=== PATIENT | male | born 1990 | race Caucasian/White ===

== ENCOUNTER 2018-03-21 23:02 | Emergency (ER) | payer SELFPAY ==
[~2018-03-21] VITALS: Ht 190.5 cm; Wt 124.7 kg
--- NOTE | 2018-03-21 23:55 | NUR ---
admitted from home ambulatory c/o r shoulder pain. dr lopez will see pt.
--- NOTE | 2018-03-22 00:55 | NUR ---
ct scan of cervical & neck done. not in any distress.
--- NOTE | 2018-03-22 01:52 | NUR ---
Patient discharged to home in stable conditon. Written and verbal after care instructions given. Patient verbalizes understanding of instructions. Ambulated from ER with stable gait. All belongings with patient.
[2018-03-22 01:53] VITALS: BP 124/80
== END 2018-03-22 01:54 | disposition home or self-care (01) ==
LOC: ER 23:06
DX: M25.511 Pain in right shoulder (principal)
CPT/HCPCS: 72125; 73030; A4663

== ENCOUNTER 2024-02-22 14:44 | Emergency (ER) | payer MEDICAID ==
[~2024-02-22] VITALS: Ht 190.5 cm; Wt 129.3 kg
[2024-02-22 14:46] VITALS: O2SAT 95
[2024-02-22] MEDS ORDERED: NEOMY/BACITRA/POLYMYXIN B OINT UD PACKET TP ONE ×2 (15:53→16:01)
[2024-02-22] MEDS ORDERED: SULF1TAB48 PO (15:55)
[2024-02-22] MEDS: NEOMY/BACITRA/POLYMYXIN B OINT UD PACKET TP ONE (15:58)
[2024-02-22] MEDS ORDERED: ACETAMINOPHEN 500 MG TABLET ONE (16:00)
[2024-02-22] MEDS ORDERED: SULFAMETH/TRIMETH 800/160 MG TABLET ONE (16:01)
[2024-02-22] MEDS: ACETAMINOPHEN 500 MG TABLET PO ONE (16:06)
[2024-02-22] MEDS: SULFAMETH/TRIMETH 800/160 MG TABLET PO ONE (16:06)
== END 2024-02-22 16:22 | disposition home or self-care (01) ==
LOC: ER 14:44
DX: L02.811 Cutaneous abscess of head [any part, except face] (principal); Z79.899 Other long term (current) drug therapy
CPT/HCPCS: A4606; A4663; A9150

== ENCOUNTER 2024-03-13 21:31 | Emergency (ER) | payer MEDICAID ==
[~2024-03-13] VITALS: Ht 190.5 cm; Wt 129.3 kg
[~2024-03-13 21:31] MED LIST: SULF1TAB48 PO
[2024-03-13] MEDS ORDERED: AMOXICILLIN-CLAVUL 875-125MG TABLET ONE (23:51)
[2024-03-13] MEDS: AMOXICILLIN-CLAVUL 875-125MG TABLET PO ONE (23:54)
[2024-03-13] MEDS ORDERED: AMOX-430 PO (23:55)
[2024-03-14 00:06] VITALS: BP 117/60; TEMP 98.6; O2SAT 98
== END 2024-03-14 00:06 | disposition home or self-care (01) ==
LOC: ER 21:32
DX: L02.811 Cutaneous abscess of head [any part, except face] (principal); Z79.899 Other long term (current) drug therapy
CPT/HCPCS: A4606; A4663

== ENCOUNTER 2024-04-03 11:50 | Emergency (ER) | payer MEDICAID ==
[~2024-04-03] VITALS: Ht 190.5 cm; Wt 129.3 kg
[~2024-04-03 11:50] MED LIST changes: +AMOX-430 PO
[2024-04-03] MEDS ORDERED: CLIN300C12 PO (13:56)
[2024-04-03 14:03] VITALS: BP 126/86; TEMP 98.3; O2SAT 98
== END 2024-04-03 14:05 | disposition home or self-care (01) ==
LOC: ER 11:50
DX: L02.811 Cutaneous abscess of head [any part, except face] (principal)
CPT/HCPCS: A4606; A4663

== ENCOUNTER 2024-10-13 21:40 | Emergency (ER) | payer SELFPAY ==
[~2024-10-13] VITALS: Ht 190.5 cm; Wt 126.1 kg
[~2024-10-13 21:40] MED LIST changes: +CLIN300C12 PO
[2024-10-13 21:58] VITALS: O2SAT 97
[2024-10-14] MEDS ORDERED: IBUP-1955 PO (17:15)
[2024-10-14] MEDS ORDERED: LIDO30AD10 TP (17:15)
[2024-10-14] MEDS ORDERED: CYCL5TAB PO (17:15)
== END 2024-10-14 01:45 | disposition left against medical advice (07) ==
LOC: ER 22:29
DX: R51.9 Headache, unspecified (principal); Z53.21 Procedure and treatment not carried out due to patient leaving prior to being seen by health care provider
CPT/HCPCS: A4606; A4663

== ENCOUNTER 2024-10-14 15:35 | Emergency (ER) | payer SELFPAY ==
[~2024-10-14] VITALS: Ht 188 cm; Wt 126.1 kg
[2024-10-14] MEDS ORDERED: IBUP-1955 PO (17:15)
[2024-10-14] MEDS ORDERED: LIDO30AD10 TP (17:15)
[2024-10-14] MEDS ORDERED: CYCL5TAB PO (17:15)
[2024-10-14 17:34] VITALS: BP 130/82; O2SAT 97
== END 2024-10-14 17:34 | disposition home or self-care (01) ==
LOC: ER 16:26
DX: S29.012A Strain of muscle and tendon of back wall of thorax, initial encounter (principal); S00.83XA Contusion of other part of head, initial encounter; S09.90XA Unspecified injury of head, initial encounter; Y04.0XXA Assault by unarmed brawl or fight, initial encounter; Y93.89 Activity, other specified; Y92.89 Other specified places as the place of occurrence of the external cause; Y99.8 Other external cause status
CPT/HCPCS: 70450; 70486; 72125; A4606; A4663